=== PATIENT | male | born 1965 | race Caucasian/White ===

== ENCOUNTER 2017-08-08 06:15 | Inpatient (IN) ==
--- NOTE | 2017-08-07 22:21 | Discharge Summary ---
<Carine Le E - Last Filed: 08/07/17 22:18> Date of Encounter: 08/07/17 - Discharge Diagnosis (1) Osteoarthritis of knees, bilateral Priority: Primary Status: Chronic Qualifiers: Osteoarthritis type: unspecified Qualified Code(s): M17.0 - Bilateral primary osteoarthritis of knee (2) Chronic pain Priority: Secondary Status: Chronic Qualifiers: Chronic pain type: other chronic pain Qualified Code(s): G89.29 - Other chronic pain (3) HLD (hyperlipidemia) Priority: Secondary Status: Chronic Qualifiers: Hyperlipidemia type: unspecified Qualified Code(s): E78.5 - Hyperlipidemia , unspecified (4) HTN (hypertension) Priority: Secondary Status: Chronic Qualifiers: Hypertension type: unspecified Qualified Code(s): I10 - Essential (primary ) hypertension (5) Obesity Priority: Secondary Status: Chronic Qualifiers: Obesity type: unspecified obesity type Obesity classification: unspecified obesity classification Serious obesity comorbidity presence: unspecified whether serious comorbidity present Qualified Code(s): E66.9 - Obesity, unspecified (6) Status post total bilateral knee replacement Priority: Primary Status: Acute - Discharge Medications Home Medications: Aspirin Enteric Coated [Aspirin EC] 325 mg PO DAILY 21 Days #21 tablet. [Rx] Dextroamphetamine/Amphetamine [Adderall Xr 15 mg Capsule] 15 mg PO DAILY [History] Doxepin HCl 10 mg PO HS 08/08/17 [History] Fluticasone Propionate Nasal [Flonase] 2 spr NS DAILY PRN 08/08/17 [History] Irbesartan [Avapro] 75 mg PO DAILY 08/08/17 [History] Metaxalone [Skelaxin] 800 mg PO QID 08/08/17 [History] Morphine Sulfate [Arymo ER] 15 mg PO Q6H 08/08/17 [History] Naproxen [EC-Naprosyn] 500 mg PO BID PRN 08/08/17 [History] Omeprazole [PriLOSEC] 20 mg PO DAILY 08/08/17 [History] Pravastatin Sodium [Pravachol] 80 mg PO HS 08/08/17 [History] Pregabalin [Lyrica] 225 mg PO BID 08/08/17 [History] Zolpidem [Ambien] 10 mg PO HS 08/08/17 [History] hydroCHLOROthiazide [Hydrochlorothiazide] 25 mg PO DAILY 08/08/17 [History] Allergies/Adverse Reactions: 3 Allergy/AdvReac Type Severity Reaction Status Date / Time No Known Allergies Allergy Verified 08/08/17 07:09 Primary care physician: Goldie Schwarz - Patient Status Disposition: Transfer Hospital Swing Bed Condition: Good - Discharge Instructions Follow Up With: Carine Le PAC [Physician Clinical Support Associate] - 08/16/17 1:45 pm (& also, , August 23, 2017 at 10:00 AM) Phan Bonilla MD [Partnered Physician] - 09/05/17 5:35 pm Additional Instructions: Discharge Instructions: Total Knee Replacement Please call [facility] ([phone]), your Primary Care Physician, or report to the Emergency Room if you have any of the following symptoms: Nausea, vomiting, fever greater that 101.5, swelling, chest pain, shortness of breath, increased pain/redness/drainage/odor for your incision site, numbness/ tingling, or any other concerning symptoms. ACTIVITY:Weight-bearing as tolerated. You may progress off support (crutches or walker) as tolerated. MEDICATIONS: Upon discharge resume your home medications. Take all the medications as prescribed. Take a stool softener if taking narcotic pain medications. Stool softeners are only effective if you drink enough fluids. Drink 6-8 glass of water or fluids a day, unless this is not allowed for another health problem. Despite using stool softeners, if you haven't had a bowel movement in 3 days, please switch to a gentle laxative. Gentle laxatives are sold over the counter. You should have a bowel movement within 24 hours, if not call the office. You will be discharged from the hospital with a prescription for pain medication. You are encouraged to decrease the use of narcotic pain medication as tolerated. Should you require a refill, please call the office. [facility] prescribes narcotic pain medication for only 4-6 weeks after surgery. If you require pain medication beyond this time period, you may be referred to your Primary Care Physician or to the Pain Clinic for further evaluation. Plan ahead for refills on pain medication as many narcotics either need to be picked up at the office or mailed. It is best to call 48-72 hours in advance of needing a prescription refill so you don't run out of medication. To help control the post-operative pain, you may take NSAIDs (Aleve,Advil, Motrin, Ibuprofen, Naprosyn) or Tylenol as prescribed on the bottle in addition to the pain medication. ANTICOAGULATION (blood thinners): Continue your Aspirin, Lovenox or Coumadin as prescribed to help prevent a blood clot in the leg or in the lungs. As long as your incision remains dry and you tolerate the NSAIDs (Aleve, Advil, Motrin, ibuprofen, naprosyn), it is OK to use the NSAIDS while you are taking your anticoagulation medication. Should your incision start to drain, stop the NSAID and contact our office. Common symptoms of blood clot in the legs include: localized pain, swelling, calf tenderness, redness or discoloration of the skin. Blood clot in the lung symptoms include: shortness of breath, rapid pulse, sweating, and chest pain that worsens with deep breathing, coughing up blood, lightheadedness, feelings of anxiety. If you experience any of these symptoms notify your physician immediately, go to the emergency room, or if having trouble breathing, call 911. WOUND CARE: Leave the dressing on for 7 to 10days. You may change the dressing if it becomes saturated greater than 50%. Do not get the dressing wet at anytime. Wash your hands with antibacterial soap, rinse and dry prior to any wound care. If you have marli the visiting nurse or rehab facility can remove the stapes 10-14 days after surgery and place steri-strips across the wound. Leave the steri-strips in place until they fall off on their won. You may let water from the shower run on top of the steri-strips. If you do not have a visiting nurse or rehab facility, you will need to return to the office at 10-14 days for the marli to be removed. If you have itching or redness around the dressing call the office. FOLLOW-UP: Please follow up with your surgeon in the orthopedic clinic in 4 weeks from the day of surgery. If you have marli that need to be removed, you will need to come back to the office in 10-14 days from the day of surgery. - Hospital Course Hospital course: Mr. Hinton is a 51 year old male - Time Spent with Patient Total time spent providing and/or coordinating discharge services: <Phan Bonilla - Last Filed: 08/11/17 06:58> Date of Encounter: 08/11/17 Time of Encounter: 06:58 - Discharge Diagnosis (1) Morbid obesity with BMI of 40.0-44.9, adult Priority: Secondary Status: Chronic (2) Osteoarthritis of knees, bilateral Priority: Primary Status: Chronic Qualifiers: Osteoarthritis type: unspecified Qualified Code(s): M17.0 - Bilateral primary osteoarthritis of knee (3) Chronic pain Priority: Secondary Status: Chronic Qualifiers: Chronic pain type: other chronic pain Qualified Code(s): G89.29 - Other chronic pain (4) HLD (hyperlipidemia) Priority: Secondary Status: Chronic Qualifiers: Hyperlipidemia type: unspecified Qualified Code(s): E78.5 - Hyperlipidemia , unspecified (5) HTN (hypertension) Priority: Secondary Status: Chronic Qualifiers: Hypertension type: unspecified Qualified Code(s): I10 - Essential (primary ) hypertension (6) Status post total bilateral knee replacement Priority: Primary Status: Acute (7) Acute blood loss anemia Status: Acute Primary care physician: Goldie Schwarz - Patient Status Functional capacity at discharge: uses cane/walker Overall status at discharge: patient is progressing back to baseline - Hospital Course Hospital course: Mr. Hinton is a 51 year old male Status post bilateral knee replacements The patient had an uneventful postoperative course. They received antibiotics and physical therapy and were discharged in stable condition. There will follow -up in the office in 2 weeks. - Time Spent with Patient Total time spent providing and/or coordinating discharge services:
--- NOTE | 2017-08-07 22:23 | Physician Discharge Referral ---
Home Health/Hosp Referral Info Transfer to: Home Health Attending Provider: Dr Bonilla - Diagnosis (1) Osteoarthritis of knees, bilateral Priority: Primary Status: Chronic (2) Chronic pain Priority: Secondary Status: Chronic (3) HLD (hyperlipidemia) Priority: Secondary Status: Chronic (4) HTN (hypertension) Priority: Secondary Status: Chronic (5) Obesity Priority: Secondary Status: Chronic (6) Status post total bilateral knee replacement Priority: Primary Status: Acute - Respiratory Orders Smoking Cessation: Smoking cessation has been advised. For more information, call the [place] Tobacco Quit Line at 4-725-DPCL-NOW. - Dressing/Wound Care Site: bilateral knees Type of Dressing/Treatments w/Frequency: Opsite placed. Keep dressing intact until first follow up appointment. If > 50% saturated, notify office, remove dressing and place appropriate dressing back in place. Leave Zipline intact. Opsite dressing is water resistant, not water- proof. OK to shower, but do not get dressing wet. - Diet/Nutrition Diet/Nutrition Orders: Regular - Activity Activity Orders: Up ad maddi, Ambulate, Chair, Walker Activity: List: Total Knee replacement Precautions x 6 weeks Apply cold therapy wrap 3-6x/day for 20 minutes at a time. Encourage ambulation throughout the day and incentive spirometer 10x/hour. Elevate affected extremity above heart as tolerated. Brace: Wear knee immobilizer at night x 2 weeks. - Services Needed Following services are medically necessary services: Nursing, Home Health Aide, Physical Therapy, Occupational Therapy - Transfer Medications Prescriptions: Aspirin Enteric Coated [Aspirin EC] 325 mg PO DAILY 21 Days #21 tablet. Home Medications: Aspirin Enteric Coated [Aspirin EC] 325 mg PO DAILY 21 Days #21 tablet. [Rx] Allergies/Adverse Reactions: 3 Allergy/AdvReac Type Severity Reaction Status Date / Time No Known Allergies Allergy Verified 07/25/17 15:43 Certification: Further, I certify that my clinical findings support that this patient is homebound (i.e. absences from home require considerable and taxing effort and are for medical reasons or baptism services or infrequently or short duration when for other reasons) because: Homebound Reason: Post-surgery restriction and or conditions limit ability to leave home Attestation: My signature below is to certify that this patient is under my care and that I, or nurse practitioner, or a physician librarian assistant working with me, has a face-to- face encounter with this patient.
--- NOTE | 2017-08-08 06:06 | History & Physical Report ---
Date of Encounter: 08/08/17 Time of Encounter: 06:05 24 Hour HP Update - Instructions Instructions: If the History and Physical is less than 30 days old and was completed prior to A.M. admission and or procedure and has NOT been updated on calendar day of procedure please complete this update prior to performing procedure. - Update Patient reports changes in Medical Condition: No Changes in examination, assessment, or condition: No Changes in Medication: No Preop tests/diagnostics Reviewed: Yes Surgery Remains Indicated: Yes Consent for Planned Operative Procedure(s) Verified: Yes - Pre-Operative Checklist Preoperative Checklist Indicated: No Prophylactic Antibiotic Ordered: Yes Is VTE Prophylaxis Indicated?: Yes
[2017-08-08] MEDS ORDERED: CeFAZolin Syr 3,000MG/30 ML 3,000 MG/30 ML SYRINGE IVPB ONE (06:33)
[2017-08-08] MEDS ORDERED: Plasma-Lyte A (PH 7.4) 1,000 ML IVC SCH (06:45)
[2017-08-08] MEDS ORDERED: Famotidine 20 MG/2 ML VIAL IVP ONE (06:57)
[2017-08-08] MEDS ORDERED: Pregabalin 75 MG CAPSULE PO ONE (06:58)
[2017-08-08] MEDS ORDERED: Propofol 500 MG/50 ML INFUS..BTL ONE (07:00)
--- NOTE | 2017-08-08 07:02 | Anesthesia Evaluation PreOp ---
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 [Rx] 3 Allergy/AdvReac Type Severity Reaction Status Date / Time No Known Allergies Allergy Verified 07/25/17 15:43 - Meds/Allergy Pre-op Review Medications Reviewed: Yes Allergies Reviewed: Yes Beta Blockers on Current Med List: No Anesthesia Results - Labs Laboratory Tests 07/25/17 07/25/17 15:48 15:48 Hgb 13.5 Hct 39.9 Plt Count 246 Sodium 139 Potassium 3.5 BUN 16 Creatinine 0.99 - Imaging EKG: report reviewed (SR) Anesthesia Exam O2 Sat Height 1.73 m Height 1.73 m Weight 122.47 kg Weight 122.47 kg O2 Sat by Pulse Oximetry 97 Vital Signs Temp Pulse Resp BP Pulse Ox 99.0 F 85 18 130/81 97 08/08/17 06:37 08/08/17 06:37 08/08/17 06:37 08/08/17 06:37 08/08/17 06:37 Height: 5'8 Weight: 270 lbs NPO (# of Hours): MN Pain Scale: 0 - HEENT Pupil (Motor): Pupils equal, EOMI Mallampati: III Oral Opening: Less than or equal to 3 - TAPE FASTENER MACHINE OPERATOR LOC: Oriented TAPE FASTENER MACHINE OPERATOR Motor: Normal RUE, Normal LUE, Normal RLE, Normal LLE, Normal Face TAPE FASTENER MACHINE OPERATOR Sensory: Normal: RUE, LUE, RLE, LLE, Face - Cardiac Rhythm: Regular Murmur: None JVD: No Carotid Bruit: No - Pulmonary Breath Sounds: bilateral Clear Respiratory Effort: Symmetrical Anesthesia Assess/Plan ASA Score: 3 (MO HTN) Modified [place] Scale for Level of Consciousness: Cooperative, oriented, and tranquil Anesthetic Plan: General, Regional Monitoring Plan: Standard Monitors Recovery Plan: PACU (Discussed SAB with Bilat Adductor Canal Blocks, possible GA , agrees to proceed)
[2017-08-08] MEDS ORDERED: Lidocaine -MPF 2% 2 ML VIAL ONE (07:03)
[2017-08-08] MEDS ORDERED: Bupivacaine-MPF 0.25% 10 ML VIAL ONE (07:04)
[2017-08-08] MEDS ORDERED: *HR* EPINEPHrine 1 MG/ML AMPUL ONE (07:04)
[2017-08-08] MEDS ORDERED: *HR* Midazolam HCl 2 MG/2 ML VIAL ONE (07:05)
[2017-08-08] MEDS ORDERED: *HR* FentaNYL (PF) 100 MCG/2 ML VIAL ONE (07:06)
[2017-08-08] MEDS ORDERED: Lidocaine -MPF 1% 2 ML VIAL ONE (07:08)
[2017-08-08] MEDS ORDERED: *HR* Ropivacaine/PF 0.5% 20 ML VIAL ONE (07:13)
[2017-08-08] MEDS ORDERED: *HR* Morphine Sulfate/PF 10 MG/10 ML AMPUL ONE (07:13)
[2017-08-08] MEDS ORDERED: Ethanol\\Acetic Acid\\Na Ace\\Ben 1,000 ML IRRIG.SOLN IR ONE (07:20)
[2017-08-08] MEDS ORDERED: *HR* PHENYLEPHRINE 1,000 MCG/10 ML SYRINGE IVP ONE (08:07)
[2017-08-08] MEDS ORDERED: Ketamine *HR* 500 MG/10 ML MDV ONE (08:46)
[2017-08-08] MEDS ORDERED: *HR* Phenylephrine 10 MG/ML VIAL ONE (08:55)
[2017-08-08] MEDS ORDERED: Ondansetron 4 MG/2 ML VIAL IVP ONE (09:05)
[2017-08-08] MEDS ORDERED: *HR* Propofol 200 MG/20 ML VIAL IVP ONE (09:14)
--- NOTE | 2017-08-08 09:47 | Anesthesia Procedures ---
Date of Encounter: 08/08/17 Time of Encounter: 07:30 Procedures: Anesthesia - Epidural/Spinal Patient ID/Chart reviewed: Yes Patient examined: Yes Consent Obtained: Yes Supplemental Oxygen: Nasal Cannula Supplemental Oxygen Rate (L/min): 2 Sedation: Versed (mg): 2 Sedation: Fentanyl (mcg): 100 Site Prep: Povidone-Iodine 1% Patient position: upright Local Anesthetic: Lidocaine 1% Amount of Local Anesthetic used: 3 Blood: No CSF: Yes Paresthesia: No Spinal Needle Gauge: 25 Procedure: SAB L1-2 aseptically x 1 attempt thru introducer and 25g pencan needle. Clear CSF, no parasthesias or heme. 3cc 0.5% bupivicaine with duramorph 0.3mg
--- NOTE | 2017-08-08 09:49 | Anesthesia Procedures ---
Date of Encounter: 08/08/17 Time of Encounter: 09:47 Procedures: Anesthesia - Nerve Block Procedure Date: 08/08/17 Time: 07:35 Allergies/Adv Reactions: 3 Allergy/AdvReac Type Severity Reaction Status Date / Time No Known Allergies Allergy Verified 08/08/17 07:09 Checklist: Correct Patient Identifier, Correct procedure, History checked Blood Thinner: No Monitor Applied: EKG, BP, Pulse Oximetry Supplemental Oxygen via Nasal Cannula (L/min): 2 Indication: Post Op Analgesia Pre-op Neuro Deficits: Yes (Chronic LBP documented per Dr Clancy) Block Type: Other (Adductor canal) Catheter placed: No Sterile Technique: Yes Ultrasound used: Yes Anatomy identified: Yes Visual spread of Local: Yes Neuro Stimulation: No Blood on Needle Aspiration: No Smooth Injection of Local: No Pain with Injection of Local: No Prep: Chlorhexadine Needle: 21 x 100 mm Stimuplex Local: Ropivacaine (0.5% 30cc each side) Volume (cc): 60 Number of Attempts: 1 Complications: None/effective block
--- NOTE | 2017-08-08 09:53 | Orthopedic Operative Note ---
Date of procedure: 08/08/17 Pre-op diagnosis: Bilateral knee arthritis Post-op diagnosis: same Procedure: Procedure: Bilateral robotic-assisted Total knee replacement Estimated blood loss: 500 cc Hardware: Metal and polyethylene replacement. [place] press fit Femur: 4 Tibia: 5 PS insert:13 Patella: 36 Exam Under anesthesia: Left knee flexion contracture 4 degrees varus 8 degrees right knee flexion contracture 2 degrees varus 10 degrees as calculated by the robot full flexion and no instability Procedural Notes: Grade 4 arthritic changes medial compartments bilateral grade 3 arthritic changes patellofemoral joint bilateral Operative procedure: The patient was brought to the operating room and placed on the operating room table. After general anesthesia was administered the operative knee was examined. Findings were noted in the exam under anesthesia. The operative extremity was prepped and draped in sterile surgical fashion. The patient received IV antibiotics prior to skin incision. Surgery began with the left knee and was followed by the right knee differences will be outlined in the dictation. A standard midline incision was made centered over the patella. The incision was made through the skin and subcutaneous tissue. A medial parapatellar tendon approach was performed. Care was taken to preserve tissue along the medial aspect of the patella. And to protect the patella tendon. The deep MCL was released off the medial tibia. The infra patella fat pad was excised. The patella was everted and cut was made at the level of the insertion of the quadriceps and patella tendon. The patella was sized to a 36 bilateral the guide was seated and the lug holes are drilled. Knee was brought into flexion. Patient noted to have Steinmann pins were placed in the tibia and the femur for the tibial and femoral arrays respectively. Checkpoints were also placed in the tibia and the femur for calculation purposes. The knee including the femur and the tibial registered. Osteophytes, ACL and PCL were excised at this point. Extension and flexion were assessed with a valgus stress components were adjusted on the computer to balance the knee. Femoral cuts were made first with robotic assistance, these included the anterior cut posterior cuts chamfer cuts. Tibial cut was then performed with robotic assistance as well. Bone fragments were removed, as well as the medial and lateral meniscus. The size 4 femoral guide was seated box cut was made lug holes are drilled. The size 5 tibial tray was seated and prepared with the fin cutter. Trial reduction with the 13 PS Meghan revealed extension of 0 degrees of extension bilateral 4 degree varus left knee 6 degree varus right knee and full flexion. No varus valgus instability. Trial reduction revealed excellent patella tracking. All trial components were removed all bony surfaces were irrigated. The Tibia was seated followed by the femur, The Meghan size 13 was seated and secured patella. Patient had similar findings for motion and stability. The knee was closed by the PA. The knee was then irrigated out with 2 L of pulse irrigation. The extensor mechanism was closed with #2 FiberWire suture and #2 PDS suture. The subcutaneous tissue was then irrigated and closed deep with #1 PDS suture superficially with 0 PDS suture and skin was closed with zip tie The patient was then placed in a sterile dressing and a postoperative brace extubated and transferred to recovery room in stable condition. Anesthesia: spinal Surgeon: Phan Bonilla Was there an assistant to the ceo present: Yes Tester Sound: Carine Le Estimated blood loss (cc): 500 Condition: stable Disposition: PACU
[2017-08-08 10:47] LABS: Hematocrit 37.8 % (37.5-50.1); Hemoglobin 12.6 g/dL (12.9-16.9)
[2017-08-08] MEDS ORDERED: Ondansetron 4 MG/2 ML VIAL IVP PRN ×2 (10:51→10:59)
[2017-08-08] MEDS ORDERED: *HR* OxyCODONE/APAP 5/325 TABLET PO PRN (10:51)
[2017-08-08] MEDS ORDERED: Naloxone 0.4 MG/ML INJ IVP PRN ×2 (10:51→10:59)
--- NOTE | 2017-08-08 10:53 | Anesthesia Evaluation Post Op ---
Date of Encounter: 08/08/17 Time of Encounter: 11:00 - Vital Signs Vital Signs: Vital Signs/O2 Sat/Glucose, Most Current Temp Pulse Resp BP Pulse Ox 08/08/17 10:41 98.6 F 82 14 95/62 94 08/08/17 10:31 79 12 93/60 93 08/08/17 10:21 80 14 91/59 95 08/08/17 10:11 97.2 F L 90 16 102/67 95 08/08/17 07:40 86 16 104/64 98 08/08/17 07:37 79 16 114/70 96 08/08/17 07:30 94 18 156/105 98 - Lungs Lungs: Clear Ascult./Percussion - Airway Airway: Non-obstructed - Cardiovascular Regular Rate - Mental Status Mental Status: Alert & Oriented, Answers Appropriately - Pain Pain Scale: 0 - Nausea Vomiting Nausea Vomiting: Not Present - Hydration Hydration: Ice chips - Discharge PostOp Status: Transfer Patient to floor
[2017-08-08] MEDS ORDERED: MOM Conc 10 ML UD.LIQ PO PRN (10:59)
[2017-08-08] MEDS ORDERED: Temazepam 15 MG CAPSULE PO PRN (10:59)
[2017-08-08] MEDS ORDERED: Sennosides 8.6 MG TABLET PO PRN (10:59)
[2017-08-08] MEDS ORDERED: Fluticasone Propionate Nasal 50 MCG/SPRAY BOTTLE NS PRN (10:59)
[2017-08-08] MEDS: hydroCHLOROthiazide 25 MG TABLET PO SCH (11:46)
[2017-08-08] MEDS: *HR* OxyCODONE/APAP 5/325 TABLET PO PRN ×2 (11:54→18:26)
[2017-08-08] MEDS: Pregabalin 75 MG CAPSULE PO SCH ×2 (11:56→22:00)
[2017-08-08] MEDS: AMPHETAMINE PO SCH (12:04)
[2017-08-08] MEDS: DEXTROAMPHETAMINE PO SCH (12:04)
[2017-08-08] MEDS: Ringers Solution, Lactated 1,000 ML IVC SCH (12:24)
[2017-08-08] MEDS: CeFAZolin Syr 3,000MG/30 ML 3,000 MG/30 ML SYRINGE IVPB SCH ×2 (12:25→18:13)
[2017-08-08] MEDS ORDERED: Acetaminophen IV 1,000 MG/100 ML INFUS..BTL IVPB ONE (17:14)
[2017-08-08] MEDS: *HR* Enoxaparin 30 MG/0.3 ML SYRINGE SQ SCH (17:37)
[2017-08-08] MEDS ORDERED: *HR* Enoxaparin 30 MG/0.3 ML SYRINGE SQ SCH (18:00)
[2017-08-08] MEDS ORDERED: CeFAZolin Syr 3,000MG/30 ML 3,000 MG/30 ML SYRINGE IVPB SCH (20:00)
[2017-08-08] MEDS: (Doxepin Hcl [Doxepin Hcl] 10 MG) PO SCH (22:19)
[2017-08-09] MEDS: Ringers Solution, Lactated 1,000 ML IVC SCH (02:33)
[2017-08-09] MEDS: *HR* OxyCODONE Immed Rel 5 MG TABLET PO PRN ×5 (02:43→22:10)
[2017-08-09 05:21] LABS: Hematocrit 29.8 % (37.5-50.1)
[2017-08-09 06:25] LABS: BUN/Creatinine Ratio 23 (6-26); Blood Urea Nitrogen 26 mg/dL (6-20); Calcium 8.6 mg/dL (8.6-10.3); Carbon Dioxide 27 mEq/L (23-29); Chloride 103 mEq/L (98-107); Glucose 130 mg/dL (70-105); Osmolality,Calculated 289 (280-300); Potassium 4.2 mEq/L (3.5-5.1); Sodium 136 mEq/L (136-145); eGFR For African Americans > 60 (> 60); eGFR For Non-African Americans > 60 (> 60)
[2017-08-09] MEDS: *HR* Enoxaparin 30 MG/0.3 ML SYRINGE SQ SCH ×2 (06:59→16:43)
--- NOTE | 2017-08-09 08:36 | Orthopedics Progress Note ---
Date of Encounter: 08/09/17 Time of Encounter: 08:36 - Assessment and Plan (1) Morbid obesity with BMI of 40.0-44.9, adult Current Visit: Yes Status: Chronic (2) Osteoarthritis of knees, bilateral Current Visit: No Status: Chronic Qualifiers: Osteoarthritis type: unspecified Qualified Code(s): M17.0 - Bilateral primary osteoarthritis of knee (3) Chronic pain Current Visit: No Status: Chronic Qualifiers: Chronic pain type: other chronic pain Qualified Code(s): G89.29 - Other chronic pain (4) HLD (hyperlipidemia) Current Visit: No Status: Chronic Qualifiers: Hyperlipidemia type: unspecified Qualified Code(s): E78.5 - Hyperlipidemia , unspecified (5) HTN (hypertension) Current Visit: No Status: Chronic Qualifiers: Hypertension type: unspecified Qualified Code(s): I10 - Essential (primary ) hypertension (6) Status post total bilateral knee replacement Current Visit: No Status: Acute (7) Acute blood loss anemia Current Visit: Yes Status: Acute Subjective Interval history: Patient was seen this morning doing well without complaints. Afebrile vital signs stable. Operative extremity: Neurovascularly intact Dressing clean dry and intact Calves nontender Assessment and plan: Continue with postoperative care Hematocrit 30 Objective Vital signs: Vital Signs Temp Pulse Resp BP Pulse Ox 08/09/17 08:21 97.6 F 95 15 138/76 97 08/09/17 03:57 97.9 F 70 17 122/80 99 08/09/17 00:20 97.8 F 71 17 125/80 99 08/08/17 20:00 97.7 F 70 18 126/87 99 08/08/17 14:28 97.3 F L 66 14 91/64 94 08/08/17 13:00 97.2 F L 61 14 80/51 94 08/08/17 12:00 98.6 F 69 14 95/67 94 08/08/17 11:30 98 F 55 14 90/59 91 08/08/17 11:00 98.6 F 70 14 87/56 97 08/08/17 10:51 98.6 F 70 14 96/61 95 08/08/17 10:41 98.6 F 82 14 95/62 94 08/08/17 10:31 79 12 93/60 93 08/08/17 10:21 80 14 91/59 95 08/08/17 10:11 97.2 F L 90 16 102/67 95 Intake and Output 08/08/17 08/09/17 08/09/17 23:59 07:59 15:59 Intake Total 1560 / 1560 1000 / 1000 Output Total 400 / 400 650 / 650 Balance 1160 / 1160 350 / 350 Intake: IV Fluids 1000 / 1000 Lactated Ringers 1,000 ML @ 75 1000 / 1000 mls/hr IVC .[id number] KALI Rx#: [id number] Oral 1560 / 1560 Output: Urine 400 / 400 Straight Cath 650 / 650 Other: Meal Dinner Percent of Meal Consumed 50% Stool Size Large Stool Consistency formed # Bowel Movements 1 Weight 128.2 kg Patient Weight 08/09/17 23:59 Weight 128.2 kg - Labs CBC & BMP: 08/09/17 04:44 08/09/17 04:44 Labs: Abnormal lab results Hgb 10.0 g/dL (12.9-16.9) L D 08/09/17 04:44 Hct 29.8 % (37.5-50.1) L 08/09/17 04:44 BUN 26 mg/dL (6-20) H 08/09/17 04:44 Glucose 130 mg/dL (70-105) H 08/09/17 04:44 - VTE Documentation of Mechanical Device: Venous foot pump, device Consult Discharge Plan - Plan Referrals: Carine Le, PAC [Physician Clerical Associate] - 08/16/17 1:45 pm (& also, August at 10:00 AM) Phan Bonilla MD [Partnered Physician] - 09/05/17 5:35 pm Goldie Schwarz MD [Primary Care Provider] -
[2017-08-09] MEDS: hydroCHLOROthiazide 25 MG TABLET PO SCH (09:03)
[2017-08-09] MEDS: *HR* OxyCODONE/APAP 5/325 TABLET PO PRN ×2 (10:17→16:42)
[2017-08-09] MEDS: AMPHETAMINE PO SCH (11:04)
[2017-08-09] MEDS: DEXTROAMPHETAMINE PO SCH (11:04)
[2017-08-09] MEDS: Pregabalin 75 MG CAPSULE PO SCH ×2 (11:06→21:25)
--- NOTE | 2017-08-09 18:33 | Event Note ---
Date of Encounter: 08/09/17 Time of Encounter: 13:05 PCR- POD#1 B/l TKR robotic 06/07/18 Chad PCR - Patient seen at bedside. at bedside. Pain control: Close to adequate - asking for any other form of pain relief we could try - stating pain is in thighs. He takes Skelaxin for muscle relaxer, pain medication, and has been using ice. Will try Lidoderm patches to help with local relief. Participating in PT. All questions and concerns addressed. Educated on use of incentive spirometer, ambulation, and hydration. Patient educated on post-operative restrictions and care. Addressed: see above. D/C plan: [facility]
--- NOTE | 2017-08-09 18:34 | Physician Discharge Referral ---
ExtendedCare Referral Info Transfer To: [facility] Provider in Charge: Dr Bonilla - Diagnosis (1) Osteoarthritis of knees, bilateral Priority: Primary Status: Chronic (2) Chronic pain Priority: Secondary Status: Chronic (3) HLD (hyperlipidemia) Priority: Secondary Status: Chronic (4) HTN (hypertension) Priority: Secondary Status: Chronic (5) Obesity Priority: Secondary Status: Chronic (6) Status post total bilateral knee replacement Priority: Primary Status: Acute Expected Duration of Placement: less than 30 days Prognosis: Good Aware of Diagnosis: Patient Aware of Prognosis: Patient - Transfer Medications Home Medications: Aspirin Enteric Coated [Aspirin EC] 325 mg PO DAILY 21 Days #21 tablet. [Rx] Dextroamphetamine/Amphetamine [Adderall Xr 15 mg Capsule] 15 mg PO DAILY [History] Doxepin HCl 10 mg PO HS 08/08/17 [History] Fluticasone Propionate Nasal [Flonase] 2 spr NS DAILY PRN 08/08/17 [History] Irbesartan [Avapro] 75 mg PO DAILY 08/08/17 [History] Metaxalone [Skelaxin] 800 mg PO QID 08/08/17 [History] Morphine Sulfate [Arymo ER] 15 mg PO Q6H 08/08/17 [History] Naproxen [EC-Naprosyn] 500 mg PO BID PRN 08/08/17 [History] Omeprazole [PriLOSEC] 20 mg PO DAILY 08/08/17 [History] Pravastatin Sodium [Pravachol] 80 mg PO HS 08/08/17 [History] Pregabalin [Lyrica] 225 mg PO BID 08/08/17 [History] Zolpidem [Ambien] 10 mg PO HS 08/08/17 [History] hydroCHLOROthiazide [Hydrochlorothiazide] 25 mg PO DAILY 08/08/17 [History] Allergies/Adverse Reactions: 3 Allergy/AdvReac Type Severity Reaction Status Date / Time No Known Allergies Allergy Verified 08/08/17 07:09 - Respiratory Orders Smoking Cessation: Smoking cessation has been advised. For more information, call the [place] Tobacco Quit Line at 9-876-DUZD-NOW. - Ancillary Orders May use pressure relief devices daily prn, May go on CLIFF w/family/respon democrat w /meds at nurse discretion PRN, May consult with Dentist, Heat Treating Bluer, Teletype Clerk PRN - Mobility Orders Chair, Ambulate - Rehabiliation Orders Rehab Potential: Good Rehab Orders: Evaluation for Physical Therapy, Evaluation for Occupational Therapy Other: Total Knee replacement Precautions x 6 weeks Apply cold therapy wrap 3-6x/day for 20 minutes at a time. Encourage ambulation throughout the day and incentive spirometer 10x/hour. Elevate affected extremity above heart as tolerated. Brace: Wear knee immobilizer at night x 2 weeks. - Treatments Skin tear care topically daily PRN per policy List/Other: Opsite placed. Keep dressing intact until first follow up appointment. If > 50% saturated, notify office, remove dressing and place appropriate dressing back in place. Leave Zipline intact. Opsite dressing is water resistant, not water- proof. OK to shower, but do not get dressing wet. - Diet Orders Regular CERTIFICATION: I certify that the transfer of the above named patient to an Extended Care Facility is necessary for the continuing treatment of the diagnosis listed. The above information is true and accurate reflection of patient's current condition. Confidential - Redisclosure prohibited without a patient's written consent.
[2017-08-09] MEDS: (Doxepin Hcl [Doxepin Hcl] 10 MG) PO SCH (21:25)
[2017-08-10] MEDS: *HR* OxyCODONE/APAP 5/325 TABLET PO PRN ×3 (00:11→14:14)
[2017-08-10 04:03] LABS: Hemoglobin 8.7 g/dL (12.9-16.9)
[2017-08-10] MEDS: *HR* OxyCODONE Immed Rel 5 MG TABLET PO PRN ×5 (04:14→18:49)
[2017-08-10] MEDS: *HR* Enoxaparin 30 MG/0.3 ML SYRINGE SQ SCH ×2 (04:15→16:49)
[2017-08-10 04:22] LABS: BUN/Creatinine Ratio 19 (6-26); Blood Urea Nitrogen 16 mg/dL (6-20); Calcium 8.2 mg/dL (8.6-10.3); Carbon Dioxide 28 mEq/L (23-29); Chloride 101 mEq/L (98-107); Glucose 143 mg/dL (70-105); Osmolality,Calculated 284 (280-300); Potassium 3.5 mEq/L (3.5-5.1); Sodium 135 mEq/L (136-145); eGFR For African Americans > 60 (> 60); eGFR For Non-African Americans > 60 (> 60)
[2017-08-10] MEDS ORDERED: *HR* LORazepam 2 MG/ML VIAL IVP ONE (06:14)
--- NOTE | 2017-08-10 08:02 | Orthopedics Progress Note ---
Date of Encounter: 08/10/17 Time of Encounter: 08:02 - Assessment and Plan (1) Morbid obesity with BMI of 40.0-44.9, adult Current Visit: Yes Status: Chronic (2) Osteoarthritis of knees, bilateral Current Visit: No Status: Chronic Qualifiers: Osteoarthritis type: unspecified Qualified Code(s): M17.0 - Bilateral primary osteoarthritis of knee (3) Chronic pain Current Visit: No Status: Chronic Qualifiers: Chronic pain type: other chronic pain Qualified Code(s): G89.29 - Other chronic pain (4) HLD (hyperlipidemia) Current Visit: No Status: Chronic Qualifiers: Hyperlipidemia type: unspecified Qualified Code(s): E78.5 - Hyperlipidemia , unspecified (5) HTN (hypertension) Current Visit: No Status: Chronic Qualifiers: Hypertension type: unspecified Qualified Code(s): I10 - Essential (primary ) hypertension (6) Status post total bilateral knee replacement Current Visit: No Status: Acute (7) Acute blood loss anemia Current Visit: Yes Status: Acute Subjective Interval history: Patient was seen this morning doing well without complaints. Afebrile vital signs stable. Operative extremity: Neurovascularly intact Dressing clean dry and intact Calves nontender Assessment and plan: Continue with postoperative care hb 8.7 Objective Vital signs: Vital Signs Temp Pulse Resp BP Pulse Ox 08/10/17 07:44 99.3 F 97 16 151/78 98 08/10/17 03:33 98.9 F 97 16 128/75 95 08/09/17 23:38 98.7 F 95 14 148/78 97 08/09/17 20:10 99.4 F 87 16 129/64 97 08/09/17 16:16 98.5 F 93 15 145/83 98 08/09/17 10:46 99.1 F 90 15 107/69 100 08/09/17 09:27 97 08/09/17 09:02 90 15 107/69 100 08/09/17 08:21 97.6 F 95 15 138/76 97 Intake and Output 08/09/17 08/10/17 08/10/17 23:59 07:59 15:59 Intake Total 1240 / 1240 Output Total 100 / 100 Balance 1240 / 1240 -100 / -100 Intake: IV Fluids 1000 / 1000 Lactated Ringers 1,000 ML @ 75 1000 / 1000 mls/hr IVC .[id number] [facility] Rx#: [id number] Oral 240 / 240 Output: Urine 100 / 100 Other: Meal Dinner Percent of Meal Consumed 70% - Labs CBC & BMP: 08/10/17 02:59 08/10/17 02:59 Labs: Abnormal lab results Hgb 8.7 g/dL (12.9-16.9) L 08/10/17 02:59 Hct 26.0 % (37.5-50.1) L 08/10/17 02:59 Sodium 135 mEq/L (136-145) L 08/10/17 02:59 Glucose 143 mg/dL (70-105) H 08/10/17 02:59 Calcium 8.2 mg/dL (8.6-10.3) L 08/10/17 02:59 - VTE Documentation of Mechanical Device: Venous foot pump, device Consult Discharge Plan - Plan Referrals: Carine Le, PAC [Physician Metal Sprayer Protective Coating] - 08/16/17 1:45 pm (& also, , August 23, 2017 at 10:00 AM) Phan Bonilla MD [Partnered Physician] - 09/05/17 5:35 pm Goldie Schwarz MD [Primary Care Provider] -
[2017-08-10] MEDS: Pregabalin 75 MG CAPSULE PO SCH (08:49)
[2017-08-10] MEDS: hydroCHLOROthiazide 25 MG TABLET PO SCH (08:50)
[2017-08-10] MEDS: DEXTROAMPHETAMINE PO SCH (09:11)
[2017-08-10] MEDS: AMPHETAMINE PO SCH (09:11)
[2017-08-10 16:00] VITALS: BP 135/69
--- NOTE | 2017-08-10 17:06 | Event Note ---
Date of Encounter: 08/10/17 Time of Encounter: 12:25 PCR- POD#2 B/l TKR robotic 06/07/18 Chad PCR - Patient seen at bedside. Pain control: adequate, Lidoderm patches helping Participating in PT. All questions and concerns addressed. Educated on use of incentive spirometer, ambulation, and hydration. Patient educated on post-operative restrictions and care. Addressed: see above. D/C plan: [facility] Little pending authorization
[2017-08-10] MEDS ORDERED: Scopolamine Patch 1.5 MG PATCH.TD72 TD ONE (18:09)
[2017-08-10] MEDS ORDERED: ALPRAZolam 0.5 MG TABLET PO ONE (18:09)
--- NOTE | 2017-08-15 02:09 | Electrocardiograph Report ---
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
== END 2017-08-10 19:30 | disposition other institution (70) | DRG 302 ==
LOC: SAMDAY 06:15 → 3NENU 11:08
PROVIDERS: ADMIT Orthopaedic Surgery; ATTEND Orthopaedic Surgery